=== PATIENT | female | born 1990 | race Caucasian/White ===

== ENCOUNTER 2016-12-16 18:37 | Emergency (ER) | payer SELFPAY ==
[~2016-12-16] VITALS: Ht 162.6 cm; Wt 127.0 kg
[~2016-12-16 18:37] MED LIST: BACTRIM DS1 TAB PO; CEPHALEXIN500 MG PO; DOXYCYC MONO100 MG OR; FLUCONAZOLE150 MG PO; FLUZONE SPLT1 M1 IM; HYDROCORTISO2.51 TOP; KEFLEX500 MG PO; KLONOPIN1 MG PO; LABETALOL HCL200 MG PO; LORTAB 10 PO; LORTAB 7.57.5 MG PO; MOTRIN600 MG/TAB PO; NO HOME MEDS; ONDANSETRON ODT8 MG PO; ORTHO TRI- OR; PAXIL30 MG PO; PRENATA3 OR; PRENATA4 PO; TRAZODONE HCL100 MG OR; TRAZODONE50 MG PO; TRI-SPRINTEC PO; XANAX0.25 MG PO
[2016-12-16] MEDS ORDERED: CEPHALEXIN500 MG PO (20:13)
[2016-12-16 20:15] LABS: INFLUENZA A NONE DETECTED (NONE DETECT); INFLUENZA B NONE DETECTED (NONE DETECT)
[2016-12-16 20:40] VITALS: BP 139/110
== END 2016-12-16 20:41 | disposition home or self-care (01) | DRG 153 ==
LOC: ED 18:37
PROVIDERS: Emergency Medicine
DX: J02.9 Acute pharyngitis, unspecified (principal); I88.9 Nonspecific lymphadenitis, unspecified; H92.03 Otalgia, bilateral; R50.9 Fever, unspecified

== ENCOUNTER 2017-05-10 13:53 | Emergency (ER) | payer SELFPAY ==
[~2017-05-10] VITALS: Ht 162.6 cm; Wt 127.0 kg
[2017-05-10] MEDS ORDERED: TRAMADOL HYDROC50 MG PO (15:57)
[2017-05-10] MEDS ORDERED: MOTRIN800 MG PO (15:57)
[2017-05-10] MEDS ORDERED: FLEXERIL PO (15:57)
[2017-05-10 16:41] VITALS: BP 150/96
== END 2017-05-10 16:43 | disposition home or self-care (01) | DRG 914 ==
LOC: ED 13:53
DX: S39.92XA Unspecified injury of lower back, initial encounter (principal); M25.521 Pain in right elbow; M54.5 Low back pain; W10.9XXA Fall (on) (from) unspecified stairs and steps, initial encounter; Y92.009 Unspecified place in unspecified non-institutional (private) residence as the place of occurrence of the external cause; M62.830 Muscle spasm of back

== ENCOUNTER 2017-10-17 19:17 | Emergency (ER) | payer OTHER ==
[~2017-10-17] VITALS: Ht 162.6 cm; Wt 132.6 kg
[~2017-10-17 19:17] MED LIST changes: +FLEXERIL PO; +MOTRIN800 MG PO; +TRAMADOL HYDROC50 MG PO
[2017-10-17 20:00] LABS: IMMATURE GRANULOCYTES 0.4 % (0.0-1.0); MEAN CELL VOLUME 86.1 fL CALC (80.0-100.0); MEAN CORPUSCULAR HGB 28.4 pG CALC (26.0-32.0); RED BLOOD COUNT 4.61 mill/uL (4.20-5.60); RED CELL DISTRI WIDTH 14.1 % (11.5-15.5)
[2017-10-17 20:15] LABS: URINE BILIRUBIN - DIPSTICK NEGATIVE (NEGATIVE); URINE BLOOD DIPSTICK NEGATIVE (NEGATIVE); URINE COLOR YELLOW; URINE GLUCOSE - DIPSTICK NEGATIVE (NEGATIVE); URINE KETONE TRACE mg/dL (NEGATIVE); URINE NITRITE - DIPSTICK NEGATIVE (Negative); URINE PROTEIN - DIPSTICK TRACE mg/dL (NEG-TRACE); URINE SPECIFIC GRAVITY >=1.030
[2017-10-17 20:18] LABS: URINE CLARITY TURBID; URINE LEUK ESTERASE SMALL (NEGATIVE)
[2017-10-17 20:19] LABS: BARBITURATES NEGATIVE (NEGATIVE); COCAINE NEGATIVE (NEGATIVE); METHADONE NEGATIVE (NEGATIVE); OXCYCODONE NEGATIVE (NEGATIVE); TETRAHYDROCANNABIONOL NEGATIVE (NEGATIVE); TRICYLIC ANTIDEPRESSANTS NEGATIVE (NEGATIVE)
[2017-10-17 20:33] LABS: HEMATOCRIT 39.7 % (37.0-47.0); HEMOGLOBIN 13.1 g/dl (12.0-16.0)
[2017-10-17 20:40] LABS: URINE CALCIUM OXALATE CRYSTALS MANY lpf; URINE SQUAMOUS EPITHELIAL CELL FEW EPI/hpf (0-FEW)
[2017-10-17 20:43] LABS: ALBUMIN 4.1 g/dL (3.2-5.0); ALKALINE PHOSPHATASE 65 u/l (38-126); ANION GAP 16 (6-22 (CALC)); BILIRUBIN, TOTAL 0.3 mg/dL (0.0-1.4); BUN 11 mg/dL (7-17); BUN/CREATININE RATIO 18 (12-20 (CALC)); CARBON DIOXIDE 25 mmol/l (22-30); CHLORIDE 105 mmol/l (95-108); CREATININE 0.6 mg/dL (0.5-1.0); GFR > 60 ML/MIN (>=60 (CALC)); GFR FOR AFR.AMER. > 60 ML/MIN (>=60 (CALC)); SGOT/AST 17 u/l (14-36); SGPT/ALT 21 u/l (9-52); SODIUM 141 mmol/l (137-146); TOTAL PROTEIN 6.7 g/dL (6.3-8.2)
[2017-10-17] MEDS ORDERED: MACRODANTIN100 MG PO (21:19)
[2017-10-17 21:31] VITALS: BP 149/78
[2017-10-17 22:06] LABS: BETA-HCG, QUANT(RESULT NUMBER) 90288 mIU/mL
== END 2017-10-17 21:25 | disposition home or self-care (01) | DRG 781 ==
LOC: ED 19:17
PROVIDERS: Emergency Medicine
DX: O16.1 Unspecified maternal hypertension, first trimester (principal); O23.41 Unspecified infection of urinary tract in pregnancy, first trimester; Z3A.08 8 weeks gestation of pregnancy

== ENCOUNTER 2017-11-12 08:52 | Emergency (ER) | payer OTHER ==
[~2017-11-12] VITALS: Ht 162.6 cm; Wt 130.0 kg
[~2017-11-12 08:52] MED LIST changes: +MACRODANTIN100 MG PO
[2017-11-12 10:02] LABS: URINE BILIRUBIN - DIPSTICK NEGATIVE (NEGATIVE); URINE BLOOD DIPSTICK NEGATIVE (NEGATIVE); URINE COLOR YELLOW; URINE GLUCOSE - DIPSTICK NEGATIVE (NEGATIVE); URINE KETONE NEGATIVE (NEGATIVE); URINE LEUK ESTERASE LARGE (NEGATIVE); URINE NITRITE - DIPSTICK NEGATIVE (Negative); URINE PROTEIN - DIPSTICK NEGATIVE (NEG-TRACE)
[2017-11-12 10:03] LABS: URINE BACTERIA MODERATE hpf; URINE CLARITY CLOUDY; URINE EPITHELIAL CELLS MODERATE EPI/hpf (0-FEW); URINE WBC 20-50 WBC/hpf (0-5)
[2017-11-12] MEDS ORDERED: MACROBID100 MG PO (10:37)
[2017-11-12 10:43] VITALS: BP 107/69
== END 2017-11-12 10:45 | disposition home or self-care (01) | DRG 781 ==
LOC: ED 08:52
PROVIDERS: Family Medicine
DX: O13.1 Gestational [pregnancy-induced] hypertension without significant proteinuria, first trimester (principal); O23.91 Unspecified genitourinary tract infection in pregnancy, first trimester; H53.8 Other visual disturbances; Z3A.11 11 weeks gestation of pregnancy